=== PATIENT | male | born 1985 | race American Indian/Alaskan Native ===

== ENCOUNTER 2018-11-15 22:48 | Emergency (ER) | payer MEDICAID, OTHER ==
[2018-11-15 23:24] LABS: Basophils # (Auto) 0.1 K/mm3 (0.0-0.1); Basophils % (Auto) 0.8 % (0.0-1.8); Eosinophils # (Auto) 0.4 K/mm3 (0.0-0.4); Eosinophils % (Auto) 4.2 % (0.0-4.3); Hemoglobin 15.5 gm/dl (11.8-15.2); Lymphocytes # (Auto) 2.6 K/mm3 (1.2-5.4); Lymphocytes % (Auto) 28.4 % (13.4-35.0); Mean Corpuscular HGB Conc 36 % (32-34); Mean Corpuscular Volume 91 fl (84-94); Monocytes # (Auto) 0.9 K/mm3 (0.0-0.8); Monocytes % (Auto) 9.8 % (0.0-7.3); Platelet Count 257 K/mm3 (140-440); Red Blood Count 4.71 M/mm3 (3.65-5.03)
[2018-11-15 23:41] LABS: BUN/Creatinine Ratio 11; Blood Urea Nitrogen 20 mg/dL (9-20); Calcium 10.5 mg/dL (8.4-10.2); Hemolysis Index 31
--- NOTE | 2018-11-15 23:46 | XRay Report ---
FINAL REPORT PROCEDURE: XR CHEST ROUTINE 2V TECHNIQUE: PA and lateral chest radiographs were obtained. CPT 28279 HISTORY: SOB COMPARISON: No prior studies are available for comparison. FINDINGS: Heart: Normal. Mediastinum/Vessels: Normal. Lungs/Pleural space: Normal. Bony thorax: No acute osseous abnormality. Other: There is an electrode identified along the anterior left chest wall IMPRESSION: There is no evidence of an acute cardiopulmonary process.
[2018-11-16] MEDS ORDERED: PEPCID PO ONE (01:19)
[2018-11-16] MEDS ORDERED: BENTYL IM ONE (01:19)
[2018-11-16] MEDS ORDERED: TYLENOL PO ONE (01:19)
--- NOTE | 2018-11-16 01:19 | Emergency Department Report ---
ED Chest Pain HPI - General Chief Complaint: Chest Pain Stated Complaint: CHEST PAIN Time Seen by Provider: 11/16/18 01:07 Source: patient, family, RN notes reviewed Mode of arrival: Ambulatory Limitations: No Limitations - History of Present Illness Initial Comments: This is a 32-year-old gentleman who is not known to this provider previously. The patient typically follows at [facility]. 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 Patient presents to the emergency room with the complaint of nontraumatic left- sided chest wall pain. This pain does not radiates to the back, arms and neck. There is no vomiting or diaphoresis. The patient also complains of intermittent shortness of breath, diffuse muscular cramps, abdominal cramps, and generalized malaise. He denies severe headache, neck pain, urinary symptoms, tobacco consumption. He recently started a new medication, metolazone. Otherwise, he reports compliance with his anticoagulation he denies recent trips, surgeries hospitalizations He denies urinary symptoms. His cramping is intermittent, and he believes that his potassium is "low." MD Complaint: chest pain -: Gradual Onset: during rest Pain Location: left chest Pain Radiation: none Severity: moderate Severity scale (0 -10): 6 Quality: tightness, aching Consistency: constant Improves With: rest Worsens With: palpation, movement re: dyspnea Aspirin use within the Past 7 Days: (0) No - Related Data On Oral Contraceptives: No Previous Rx's Medication Instructions Recorded Last Taken Type Ondansetron [Zofran] 4 mg PO Q6HR PRN #20 tablet 11/16/14 Unknown Rx Naproxen [Naprosyn] 500 mg PO BID #30 tablet 02/07/15 Unknown Rx traMADol [Ultram 50 MG tab] 50 mg PO Q6HR PRN #20 tablet 02/07/15 Unknown Rx Acetaminophen [Tylenol Arthritis] 650 mg PO Q6HR PRN #30 tablet.er 11/16/18 Unknown Rx Famotidine [Pepcid] 20 mg PO BID #10 tablet 11/16/18 Unknown Rx Allergies Allergy/AdvReac Type Severity Reaction Status Date / Time No Known Allergies Allergy Verified 11/15/14 22:55 Heart Score - HEART Score History: Slightly suspicious EKG: Non-specific Age: < 45 Risk factors: 1-2 risk factors Troponin: < normal limit HEART Score: 2 - Critical Actions Critical Actions: 0-3 pts:0.9-1.7%risk of adverse cardiac event.Candidate for discharge ED Review of Systems ROS: Stated complaint: CHEST PAIN Other details as noted in HPI Constitutional: malaise. denies: fever Eyes: denies: vision change ENT: denies: epistaxis Respiratory: shortness of breath Cardiovascular: chest pain Gastrointestinal: abdominal pain. denies: vomiting Genitourinary: denies: dysuria Musculoskeletal: arthralgia, myalgia Skin: denies: lesions Neurological: denies: headache ED Past Medical Hx - Past Medical History Previous Medical History?: Yes Hx Congestive Heart Failure: Yes Hx Pulmonary Embolism: Yes Additional medical history: PE - Surgical History Additional Surgical History: ICD - Social History Smoking Status: Current Every Day Smoker Substance Use Type: None - Medications Home Medications: Home Medications Medication Instructions Recorded Confirmed Last Taken Type Ondansetron [Zofran] 4 mg PO Q6HR PRN #20 tablet 11/16/14 Unknown Rx Naproxen [Naprosyn] 500 mg PO BID #30 tablet 02/07/15 Unknown Rx traMADol [Ultram 50 MG tab] 50 mg PO Q6HR PRN #20 tablet 02/07/15 Unknown Rx Acetaminophen [Tylenol Arthritis] 650 mg PO Q6HR PRN #30 tablet.er 11/16/18 Unknown Rx Famotidine [Pepcid] 20 mg PO BID #10 tablet 11/16/18 Unknown Rx ED Physical Exam - General Limitations: No Limitations General appearance: alert, in no apparent distress - Head Head exam: Present: atraumatic, normocephalic - Eye Eye exam: Present: normal appearance, EOMI. Absent: scleral icterus, nystagmus - ENT ENT exam: Present: normal exam, normal orophraynx, mucous membranes moist, normal external ear exam - Neck Neck exam: Present: normal inspection, full ROM. Absent: tenderness, mening ismus - Respiratory Respiratory exam: Present: normal lung sounds bilaterally, chest wall tenderness. Absent: respiratory distress, wheezes, rales, rhonchi, stridor - Cardiovascular Cardiovascular Exam: Present: regular rate, normal rhythm, normal heart sounds. Absent: bradycardia, tachycardia, irregular rhythm, systolic murmur, diastolic murmur, rubs, gallop - GI/Abdominal GI/Abdominal exam: Present: soft. Absent: distended, tenderness, guarding, rebound, rigid, pulsatile mass - Rectal Rectal exam: Present: deferred - Extremities Exam Extremities exam: Present: normal inspection, full ROM, other (2+ pulses noted in the bilateral upper, lower extremities. Compartments soft. No long bony tenderness. The pelvis is stable.). Absent: pedal edema, joint swelling, calf tenderness - Back Exam Back exam: Present: normal inspection, full ROM. Absent: tenderness, CVA tenderness (R), paraspinal tenderness, vertebral tenderness - Neurological Exam Neurological exam: Present: alert, oriented X3, CN II-XII intact, normal gait, other (Extraocular movements intact. Tongue midline. No facial droop. Facial sensation intact to light touch in the V1, V2, V3 distribution bilaterally. 5 and 5 strength in 4 extremities.. Sensation is intact to light touch in 4 extremities.). Absent: motor sensory deficit - Psychiatric Psychiatric exam: Present: normal affect, normal mood - Skin Skin exam: Present: warm, dry, intact, normal color. Absent: rash ED Course Vital Signs 11/15/18 11/16/18 11/16/18 22:57 01:27 01:30 Temperature 97.8 F Pulse Rate 52 L 93 H 95 H Respiratory 20 24 24 Rate Blood Pressure 128/75 137/68 O2 Sat by Pulse 97 96 95 Oximetry 11/16/18 11/16/18 11/16/18 01:46 02:00 02:16 Temperature Pulse Rate 82 74 86 Respiratory 18 16 10 L Rate Blood Pressure 137/68 137/68 126/56 O2 Sat by Pulse 96 91 100 Oximetry 11/16/18 11/16/18 02:17 02:30 Temperature Pulse Rate 77 Respiratory 18 19 Rate Blood Pressure 126/56 O2 Sat by Pulse 97 Oximetry - Reevaluation(s) Reevaluation #1: 11/16/18 02:32 Differential diagnosis, including without limited to: GERD, gastritis, hiatal hernia, acute coronary syndrome, pericarditis, myocarditis, pneumonia, pulmonary embolus, electrolyte derangement Assessment and plan: 32-year-old gentleman with multiple complaints. Complaint #1: Chest pain low risk by well's criteria, EKG unremarkable with the exception of high left ventricular voltage, troponin negative 1, low risk by the heart score. We will treat with appropriate pain medication, repeat troponin, repeat EKG. X-ray of the chest unremarkable. Clinically doubt pneumonia, congestive heart failure. Not tachycardic. Not hypoxic. Compliant with systemic anticoagulation. Clinically doubt pulmonary embolus. D-dimer pending. Complaint #2: Myalgias and cramping: Treat with Bentyl, famotidine, acetaminophen. Check creatinine kinase, magnesium, liver panel. Renal insufficiency appears to be chronic. Reevaluation #2: 11/16/18 03:41 The patient is observed in the emergency room for approximately 5 hours without clinical decompensation. Vital signs remained stable and unremarkable. A repeat EKG unchanged from prior. Troponin negative 2. D-dimer negative. Laboratory studies essentially unremarkable with the exception of very mildly elevated phosphorus. The patient is at low risk for major adverse cardiac event by the heart score. we will discontinue the patient's metolazone, and he may follow-up with an outpatient primary care doctor or manager of operations for further evaluation. 11/16/18 03:44 ENEIDA score - Eneida Score Age > 65: (0) No Aspirin use within the Past 7 Days: (0) No 3 or more CAD Risk Factors: (0) No 2 or more Angina events in past 24 hrs: (0) No Known CAD with more than 50% Stenosis: (0) No Elevated Cardiac Markers: (0) No ST Deviation Greater than 0.5mm: (0) No ENEIDA Score: 0 ED Medical Decision Making - Lab Data Result diagrams: 11/15/18 23:07 11/15/18 23:07 Vital Signs 11/15/18 11/16/18 11/16/18 22:57 01:27 01:30 Temperature 97.8 F Pulse Rate 52 L 93 H 95 H Respiratory 20 24 24 Rate Blood Pressure 128/75 137/68 O2 Sat by Pulse 97 96 95 Oximetry 11/16/18 02:17 Temperature Pulse Rate Respiratory 18 Rate Blood Pressure O2 Sat by Pulse Oximetry Lab Results 11/15/18 11/15/18 Range/Units 23:07 23:07 WBC 9.3 (4.5-11.0) K/mm3 RBC 4.71 (3.65-5.03) M/mm3 Hgb 15.5 H (11.8-15.2) gm/dl Hct 43.0 (35.5-45.6) % MCV 91 (84-94) fl MCH 33 H (28-32) pg MCHC 36 H (32-34) % RDW 15.0 (13.2-15.2) % Plt Count 257 (140-440) K/mm3 Lymph % (Auto) 28.4 (13.4-35.0) % [place] % (Auto) 9.8 H (0.0-7.3) % Eos % (Auto) 4.2 (0.0-4.3) % Baso % (Auto) 0.8 (0.0-1.8) % Lymph # 2.6 (1.2-5.4) K/mm3 [place] # 0.9 H (0.0-0.8) K/mm3 Eos # 0.4 (0.0-0.4) K/mm3 Baso # 0.1 (0.0-0.1) K/mm3 Seg Neutrophils % 56.8 (40.0-70.0) % Seg Neutrophils # 5.3 (1.8-7.7) K/mm3 Sodium 132 L (137-145) mmol/L Potassium 4.4 (3.6-5.0) mmol/L Chloride 91.4 L (98-107) mmol/L Carbon Dioxide 25 (22-30) mmol/L Anion Gap 20 mmol/L BUN 20 (9-20) mg/dL Creatinine 1.9 H (0.8-1.5) mg/dL Estimated GFR 50 ml/min BUN/Creatinine Ratio 11 % Glucose 105 H (75-100) mg/dL Calcium 10.5 H (8.4-10.2) mg/dL Troponin T < 0.010 (0.00-0.029) ng/mL - EKG Data -: EKG Interpreted by Me EKG shows normal: sinus rhythm Rate: normal - EKG Data When compared to previous EKG there are: previous EKG unavailable 11/16/18 02:34 Sinus, 81 bpm, normal axis, QTC prolonged, premature ventricular contractions, high left ventricular voltage, not consistent with ST elevation myocardial infarction. - Radiology Data Radiology results: report reviewed, image reviewed X-ray the chest is negative for acute disease. ICD is noted. Critical care attestation.: If time is entered above; I have spent that time in minutes in the direct care of this critically ill patient, excluding procedure time. ED Disposition Clinical Impression: History of chest pain, Cramps, muscle, general Disposition: TO HOME OR SELFCARE Is pt being admited?: No Does the pt Need Aspirin: No Condition: Good Instructions: Chest Pain (ED), Muscle Cramp (ED) Additional Instructions: Continue outpatient medications, with the exception of metolazone. Discontinue metolazone for now. Follow-up with your primary care doctor or manager of operations within the next 3-5 days. Alternatively, patient may follow up with the less than cardiology practice. Follow-up with a signals intelligence analysis manager within the next 3-6 weeks. Return to the emergency room right away with Bernabe, worsen, different symptoms. Prescriptions: Acetaminophen [Tylenol Arthritis] 650 mg PO Q6HR PRN #30 tablet.er PRN Reason: Pain Famotidine [Pepcid] 20 mg PO BID #10 tablet Referrals: [facility] [Provider Group] - 3-5 Days MAURICIO LUIS MD [Staff Physician] - as needed
[2018-11-16 02:47] VITALS: BP 126/56
[2018-11-16 03:19] LABS: INR 1.36 (0.87-1.13)
[2018-11-16 03:20] LABS: Partial Thromboplastin Time 25.6 Sec. (24.2-36.6)
[2018-11-16 03:31] LABS: Alanine Aminotransferase 43 units/L (7-56); Albumin 4.6 g/dL (3.9-5)
[2018-11-16 03:32] LABS: Bilirubin,Direct < 0.2 mg/dL (0-0.2)
== END 2018-11-16 04:15 | disposition home or self-care (01) ==
LOC: ED 22:48
DX: R07.89 Other chest pain (principal); I50.9 Heart failure, unspecified; F17.200 Nicotine dependence, unspecified, uncomplicated; M79.10 Myalgia, unspecified site; Z86.711 Personal history of pulmonary embolism
CPT/HCPCS: 36415; 71046; 80048; 80076; 82550; 83735; 83880; 84100; 84484; 85025; 85379; 85610; 85730; 93005; 93010; 99284; J0500

== ENCOUNTER 2019-09-14 16:25 | Emergency (ER) | payer MEDICAID ==
--- NOTE | 2019-09-14 17:14 | Event Note ---
ED Screening Note Date of service: 09/14/19 Time: 17:10 ED Screening Note: This is a 33 y.o. M. that presents to the ER with numbness to left thigh for 3 days. PMH of CHF and pulmonary embolism Off xarelto for 3 weeks. This initial assessment/diagnostic orders/clinical plan/treatment(s) is/are subject to change based on patients health status, clinical progression and re- assessment by fellow clinical providers in the ED. Further treatment and workup at subsequent clinical providers discretion. Patient/guardian urged not to elope from the ED as their condition may be serious if not clinically assessed and managed. Initial orders include: doppler
--- NOTE | 2019-09-14 19:32 | Vascular Lab Report ---
DUPLEX DOPPLER LOWER EXTREMITY VEINS, LEFT INDICATION / CLINICAL INFORMATION: r/o dvt. Numbness in the left thigh for 3 days. History of pulmonary embolism. TECHNIQUE: Duplex doppler imaging was performed through the veins of the left lower extremity using venous compr ession and other maneuvers. COMPARISON: None available. FINDINGS: COMMON FEMORAL VEIN: Negative. FEMORAL VEIN: Negative. POPLITEAL VEIN: Negative. CALF VEINS: Negative. ADDITIONAL FINDINGS: None. IMPRESSION: 1. No sonographic evidence for DVT in the left lower extremity. Signer Name: Bere Bishop MD Signed: 09/14/2019 7:27 PM Workstation Name: [id number]
--- NOTE | 2019-09-14 20:05 | Emergency Department Report ---
ED Extremity Problem HPI - General Chief complaint: Extremity Injury, Lower Stated complaint: LT LEG NUMB Time Seen by Provider: 09/14/19 17:10 Source: patient Mode of arrival: Ambulatory Limitations: No Limitations - History of Present Illness Initial comments: The patient is a 33-year-old male with a history of CHF and chronic low back pain who presents to the ED with acute exacerbation of his chronic low back pain that radiates to the right lateral thigh with tingling sensation for the last 3 days. Patient denies fall, trauma to congenital, heavy lifting, bilateral lower extremity weakness, dizziness, urinary or bowel incontinence, saddle paresthesia, fever, chills, abdominal pain, nausea and vomiting or hematuria, chest pain or shortness of breath. MD Complaint: extremity pain (LEFT THIGH TINGLING), other (Left thigh tingling sensation) -: Sudden, days(s) (3) Location: left (thigh) History of Same: Yes -: Yes myalgia, Yes arthralgia Radiation: proximal Severity scale (0 -10): 4 Quality: aching, sharp Consistency: constant Improves with: nothing Worsens with: nothing Associated Symptoms: denies other symptoms, myalgias, arthralgias. denies: chest pain, shortness of breath - Related Data Previous Rx's Medication Instructions Recorded Last Taken Type Ondansetron [Zofran] 4 mg PO Q6HR PRN #20 tablet 11/16/14 Unknown Rx Naproxen [Naprosyn] 500 mg PO BID #30 tablet 02/07/15 Unknown Rx traMADoL [Ultram 50 MG tab] 50 mg PO Q6HR PRN #20 tablet 02/07/15 Unknown Rx Acetaminophen [Tylenol Arthritis] 650 mg PO Q6HR PRN #30 tablet.er 11/16/18 Unknown Rx Famotidine [Pepcid] 20 mg PO BID #10 tablet 11/16/18 Unknown Rx Gabapentin 300 mg PO Q8HR PRN #45 capsule 09/14/19 Unknown Rx Naproxen [Naprosyn TAB] 500 mg PO Q12H PRN #24 tablet 09/14/19 Unknown Rx Prednisone [predniSONE 10 mg 10 mg PO .TAPER #21 tab.ds.pk 09/14/19 Unknown Rx (6-Day Pack, 21 Tabs)] Allergies Allergy/AdvReac Type Severity Reaction Status Date / Time No Known Allergies Allergy Verified 11/15/14 22:55 ED Review of Systems ROS: Stated complaint: LT LEG NUMB Other details as noted in HPI Constitutional: denies: chills, fever Eyes: denies: eye pain, eye discharge, vision change ENT: denies: ear pain, throat pain Respiratory: denies: cough, shortness of breath, wheezing Cardiovascular: denies: chest pain, palpitations Endocrine: no symptoms reported Gastrointestinal: denies: abdominal pain, nausea, diarrhea Genitourinary: denies: urgency, dysuria Musculoskeletal: back pain (lower), arthralgia (left thigh tingling sensation). denies: joint swelling Skin: denies: rash, lesions Neurological: denies: headache, weakness, paresthesias Psychiatric: denies: anxiety, depression Hematological/Lymphatic: denies: easy bleeding, easy bruising ED Past Medical Hx - Past Medical History Hx Congestive Heart Failure: Yes Hx Pulmonary Embolism: Yes Additional medical history: PE - Surgical History Additional Surgical History: ICD - Social History Smoking Status: Current Every Day Smoker Substance Use Type: Marijuana - Medications Home Medications: Home Medications Medication Instructions Recorded Confirmed Last Taken Type Ondansetron [Zofran] 4 mg PO Q6HR PRN #20 tablet 11/16/14 Unknown Rx Naproxen [Naprosyn] 500 mg PO BID #30 tablet 02/07/15 Unknown Rx traMADoL [Ultram 50 MG tab] 50 mg PO Q6HR PRN #20 tablet 02/07/15 Unknown Rx Acetaminophen [Tylenol Arthritis] 650 mg PO Q6HR PRN #30 tablet.er 11/16/18 Unknown Rx Famotidine [Pepcid] 20 mg PO BID #10 tablet 11/16/18 Unknown Rx Gabapentin 300 mg PO Q8HR PRN #45 capsule 09/14/19 Unknown Rx Naproxen [Naprosyn TAB] 500 mg PO Q12H PRN #24 tablet 09/14/19 Unknown Rx Prednisone [predniSONE 10 mg 10 mg PO .TAPER #21 tab.ds.pk 09/14/19 Unknown Rx (6-Day Pack, 21 Tabs)] ED Physical Exam - General Limitations: No Limitations General appearance: alert, in no apparent distress - Head Head exam: Present: atraumatic, normocephalic, normal inspection - Eye Eye exam: Present: normal appearance, PERRL, EOMI. Absent: scleral icterus, conjunctival injection Pupils: Present: normal accommodation - ENT ENT exam: Present: normal exam, normal orophraynx, mucous membranes moist, TM's normal bilaterally, normal external ear exam - Neck Neck exam: Present: normal inspection, full ROM. Absent: tenderness - Respiratory Respiratory exam: Present: normal lung sounds bilaterally. Absent: respiratory distress, wheezes, rales, stridor, chest wall tenderness, accessory muscle use, prolonged expiratory - Cardiovascular Cardiovascular Exam: Present: regular rate, normal rhythm, normal heart sounds. Absent: systolic murmur, diastolic murmur, rubs, gallop - GI/Abdominal GI/Abdominal exam: Present: soft, normal bowel sounds. Absent: tenderness, guarding, hyperactive bowel sounds, hypoactive bowel sounds - Extremities Exam Extremities exam: Present: normal inspection, full ROM, normal capillary refill - Back Exam Back exam: Present: normal inspection, full ROM, tenderness (palpable lumbosacral paraspinal musculoskeletal tenderness), muscle spasm, paraspinal tenderness - Neurological Exam Neurological exam: Present: alert, oriented X3, CN II-XII intact, normal gait, reflexes normal - Psychiatric Psychiatric exam: Present: normal affect, normal mood - Skin Skin exam: Present: warm, dry, intact, normal color. Absent: rash ED Course Vital Signs 09/14/19 17:10 Temperature 98.2 F Pulse Rate 85 Respiratory 18 Rate Blood Pressure 124/78 O2 Sat by Pulse 95 Oximetry ED Medical Decision Making - Radiology Data Radiology results: report reviewed, image reviewed Findings [facility], [place] [address] [place] [address] Vascular Lab Report Signed Patient: LISA HEWITT MR#: [id number] : 1985 Acct:[id number] Age/Sex: 33 / M ADM Date: 09/14/19 Loc: ED Attending Dr: Ordering Physician: TERESA AGUILAR Date of Service: 09/14/19 Procedure(s): VL venous duplex LE LT Accession Number(s): [id number] cc: TERESA AGUILAR DUPLEX DOPPLER LOWER EXTREMITY VEINS, LEFT INDICATION / CLINICAL INFORMATION: r/o dvt. Numbness in the left thigh for 3 days. History of pulmonary embolism. TECHNIQUE: Duplex doppler imaging was performed through the veins of the left lower extremity using venous compression and other maneuvers. COMPARISON: None available. FINDINGS: COMMON FEMORAL VEIN: Negative. FEMORAL VEIN: Negative. POPLITEAL VEIN: Negative. CALF VEINS: Negative. ADDITIONAL FINDINGS: None. IMPRESSION: 1. No sonographic evidence for DVT in the left lower extremity. Signer Name: Bere Bishop MD Signed: 09/14/2019 7:27 PM Workstation Name: [id number] Transcribed By: DT Dictated By: Timo Bishop MD Electronically Authenticated By: Timo Bishop MD Signed Date/Time: 09/14/191926 DD/ 26 TD/TT: - Medical Decision Making This is a pleasant 33-year-old male with a history of chronic low back pain and sciatica presented to the ED with acute exacerbation of his chronic low back pain that radiates to the left thigh with tingling sensation for 3 days. In the ED, patient is alert and oriented 3 and is discharged in distress. Left lower extremity Doppler ultrasound shows no sonographic evidence for DVT in the left lower extremity. Patient was discharged home on medications for lumbar radiculopathy and was advised to follow-up with his primary care physician in 7- 10 days for reevaluation or return to the ED immediately if symptoms get worse. - Differential Diagnosis Muscle spasm; chronic back pain; sciatica; muscle strain Critical care attestation.: If time is entered above; I have spent that time in minutes in the direct care of this critically ill patient, excluding procedure time. 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 Return to the ED immediately if symptoms get worse. Prescriptions: Gabapentin 300 mg PO Q8HR PRN #45 capsule PRN Reason: Pain , Severe (7-10) Naproxen [Naprosyn TAB] 500 mg PO Q12H PRN #24 tablet PRN Reason: Pain , Severe (7-10) Prednisone [predniSONE 10 mg (6-Day Pack, 21 Tabs)] 10 mg PO .TAPER #21 tab.ds.pk Referrals: BRAYDON WHEELER MD [Staff Physician] - 7-10 days Time of Disposition: 20:05 Print Language: TUNISIAN
[2019-09-14 20:13] VITALS: BP 122/67
== END 2019-09-14 20:15 | disposition home or self-care (01) ==
LOC: ED 16:25
DX: G57.92 Unspecified mononeuropathy of left lower limb (principal); M54.42 Lumbago with sciatica, left side; G89.29 Other chronic pain; I26.99 Other pulmonary embolism without acute cor pulmonale; F17.200 Nicotine dependence, unspecified, uncomplicated; F12.10 Cannabis abuse, uncomplicated; Z79.899 Other long term (current) drug therapy; Z98.890 Other specified postprocedural states

== ENCOUNTER 2022-06-04 14:19 | Emergency (ER) | payer MEDICARE ==
[2022-06-04 14:40] VITALS: BP 154/68
== END 2022-06-04 20:00 | disposition left against medical advice (07) ==
LOC: ED 14:19
DX: F19.239 Other psychoactive substance dependence with withdrawal, unspecified (principal); Z53.21 Procedure and treatment not carried out due to patient leaving prior to being seen by health care provider

== ENCOUNTER 2022-06-08 01:46 | Inpatient (IN) | payer MEDICARE ==
[2022-06-08] MEDS ORDERED: ASPIRIN 81 MG TAB CHEW PO ONE (02:32)
--- NOTE | 2022-06-08 02:39 | Emergency Department Report ---
ED Chest Pain HPI - General Chief Complaint: Chest Pain Stated Complaint: CHEST PAIN Time Seen by Provider: 06/08/22 02:32 Source: patient, EMS Mode of arrival: Stretcher Limitations: No Limitations - History of Present Illness Initial Comments: 36-year-old male with a history of pulmonary embolism, heart failure s/p ICD placement who now presents with chest discomfort and shortness of breath that started couple of days ago. Patient has history of extensive illicit drug use. Patient mentioned that cardiac problem and complication runs in his family. Patient denies any fever or chills. No other modifying or associated factors reported. MD Complaint: chest pain - Related Data Previous Rx's Medication Instructions Recorded Last Taken Type Ondansetron [Zofran] 4 mg PO Q6HR PRN #20 tablet 11/16/14 Unknown Rx Naproxen [Naprosyn] 500 mg PO BID #30 tablet 02/07/15 Unknown Rx traMADoL [Ultram 50 MG tab] 50 mg PO Q6HR PRN #20 tablet 02/07/15 Unknown Rx Acetaminophen [Tylenol Arthritis] 650 mg PO Q6HR PRN #30 tablet.er 11/16/18 Unknown Rx Famotidine [Pepcid] 20 mg PO BID #10 tablet 11/16/18 Unknown Rx Gabapentin 300 mg PO Q8HR PRN #45 capsule 09/14/19 Unknown Rx Naproxen [Naprosyn TAB] 500 mg PO Q12H PRN #24 tablet 09/14/19 Unknown Rx Prednisone [predniSONE 10 mg 10 mg PO .TAPER #21 tab.ds.pk 09/14/19 Unknown Rx (6-Day Pack, 21 Tabs)] Allergies Allergy/AdvReac Type Severity Reaction Status Date / Time No Known Allergies Allergy Verified 11/15/14 22:55 Heart Score - HEART Score History: Slightly suspicious EKG: Normal Age: < 45 Risk factors: 1-2 risk factors Troponin: < normal limit HEART Score: 1 - EKG Read Time Time EKG Completed: 02:06 EKG Read Time: 02:15 - Critical Actions Critical Actions: 0-3 pts:0.9-1.7%risk of adverse cardiac event.Candidate for discharge ED Review of Systems ROS: Stated complaint: CHEST PAIN Other details as noted in HPI Comment: All other systems reviewed and negative Cardiovascular: chest pain, palpitations ED Past Medical Hx - Past Medical History Previous Medical History?: Yes Hx Congestive Heart Failure: Yes Hx Pulmonary Embolism: Yes Additional medical history: PE - Surgical History Past Surgical History?: Yes Additional Surgical History: ICD - Social History Smoking Status: Current Some Day Smoker Substance Use Type: Other - Medications Home Medications: Home Medications Medication Instructions Recorded Confirmed Last Taken Type Ondansetron [Zofran] 4 mg PO Q6HR PRN #20 tablet 11/16/14 Unknown Rx Naproxen [Naprosyn] 500 mg PO BID #30 tablet 02/07/15 Unknown Rx traMADoL [Ultram 50 MG tab] 50 mg PO Q6HR PRN #20 tablet 02/07/15 Unknown Rx Acetaminophen [Tylenol Arthritis] 650 mg PO Q6HR PRN #30 tablet.er 11/16/18 Unknown Rx Famotidine [Pepcid] 20 mg PO BID #10 tablet 11/16/18 Unknown Rx Gabapentin 300 mg PO Q8HR PRN #45 capsule 09/14/19 Unknown Rx Naproxen [Naprosyn TAB] 500 mg PO Q12H PRN #24 tablet 09/14/19 Unknown Rx Prednisone [predniSONE 10 mg 10 mg PO .TAPER #21 tab.ds.pk 09/14/19 Unknown Rx (6-Day Pack, 21 Tabs)] ED Physical Exam - General Limitations: No Limitations General appearance: alert, in no apparent distress - Head Head exam: Present: normal inspection - Eye Eye exam: Present: normal appearance Pupils: Present: normal accommodation - ENT ENT exam: Present: normal exam, normal orophraynx, mucous membranes dry - Neck Neck exam: Present: normal inspection, full ROM. Absent: tenderness - Respiratory Respiratory exam: Present: normal lung sounds bilaterally. Absent: respiratory distress, accessory muscle use - Cardiovascular Cardiovascular Exam: Present: regular rate, normal rhythm, normal heart sounds - GI/Abdominal GI/Abdominal exam: Present: soft, normal bowel sounds. Absent: distended, ten derness - Extremities Exam Extremities exam: Present: normal inspection, full ROM, normal capillary refill. Absent: tenderness, pedal edema - Back Exam Back exam: Absent: tenderness ED Course Vital Signs 06/08/22 02:15 Temperature 97.9 F Pulse Rate 43 L Respiratory 13 Rate Blood Pressure 157/78 [Left] O2 Sat by Pulse 98 Oximetry - Consultations Consultation #1: 06/08/22 04:47 Dr Knowles consulted Consultation #2: 06/08/22 04:48 Dr Conde consulted who accept pt for further evaluation and treatment ENEIDA score - Eneida Score Age > 65: (0) No Aspirin use within the Past 7 Days: (0) No 3 or more CAD Risk Factors: (0) No 2 or more Angina events in past 24 hrs: (0) No Known CAD with more than 50% Stenosis: (0) No Elevated Cardiac Markers: (0) No ST Deviation Greater than 0.5mm: (0) No ENEIDA Score: 0 ED Medical Decision Making - Lab Data Result diagrams: 06/08/22 02:50 06/08/22 02:50 - EKG Data -: EKG Interpreted by Nd EKG shows normal: sinus rhythm Rate: bradycardia - EKG Data 06/08/22 02:39 Initial EKG shows sinus bradycardia at a rate of 43 bpm with possible left ventricular hypertrophy and this abnormal ECG. - Radiology Data CXR noted with mild cardiomegaly with vascular congestion - Medical Decision Making Here with chest pain with history of sinus bradycardia/heart failure s/p ICD--which is likely dysfunction at this point we will go ahead and order routine labs including CBC, CMP, urinalysis, and cardiac enzyme-- This could also be differential could be but not limited to myocardial infarction, pulmonary embolism, costochondritis, anxiety, gastritis, GERD, pancreatitis, and or pyelonephritis--in order to rule out the above-- so will go ahead and order routine cardiopulmonary work-up that include troponin, EKG, chest x-ray, BNP, CKMB, and CBC, CMP and urinalysis for any correctable infectious process or electrolyte abnormality as a cause. Will also have this pacemaker ICD interrogated--patient bedside nurse was able to talk to [employer] and was told that this is ordinary ICD without pacemaker and patient will be needed to be admitted to the hospitalist for ca rdiology consult with this bradycardia. Lab reviewed and noticed to be within normal limit including BNP--and cardiac enzyme troponin. Chest x-ray however shows some vascular congestion but no infiltrate.--The vascular congestion probably caused some cardiac strain. Dr. Knowles video operator [employer] consulted who agreed to see patient in the morning. Dr Conde consulted who accept pt for further evaluation and treatment. Given Lasix 40 mg IV x 1 for the vascular congestion Critical care attestation.: If time is entered above; I have spent that time in minutes in the direct care of this critically ill patient, excluding procedure time. ED Disposition Clinical Impression: Pulmonary vascular congestion, Bradycardia ICD (implantable cardioverter-defibrillator) malfunction Qualifiers: Encounter type: initial encounter Qualified Code(s): T82.118A - Breakdown (mechanical) of other cardiac electronic device, initial encounter Chest pain Qualifiers: Chest pain type: unspecified Qualified Code(s): R07.9 - Chest pain, unspecified Disposition: 09 ADMITTED INPATIENT Is pt being admited?: Yes Does the pt Need Aspirin: No Condition: Stable Instructions: Nonspecific Chest Pain, Adult Time of Disposition: 04:47
--- NOTE | 2022-06-08 03:05 | XRay Report ---
CHEST 1 VIEW INDICATION / CLINICAL INFORMATION: Chest Pain STUDY TIME: 240 COMPARISON: 11/15/2018 FINDINGS: SUPPORT DEVICES: External pacer is again seen HEART / MEDIASTINUM: Mild cardiomegaly LUNGS / PLEURA: Pulmonary vascularity appears within normal limits. No focal infiltrates are seen. No pleural effusions are noted. No pneumothorax. ADDITIONAL FINDINGS: No significant additional findings. Signer Name: Johnie Kimbrough MD Signed: 06/08/2022 3:01 AM Workstation Name: [id number]
[2022-06-08 03:08] LABS: Basophils % (Auto) 0.7 % (0.0-1.8); Eosinophils # (Auto) 0.1 K/mm3 (0.0-0.4); Eosinophils % (Auto) 1.8 % (0.0-4.3); Hematocrit 36.2 % (35.5-45.6); Hemoglobin 12.1 gm/dl (11.8-15.2); Lymphocytes # (Auto) 2.5 K/mm3 (1.2-5.4); Lymphocytes % (Auto) 34.8 % (13.4-35.0); Mean Corpuscular HGB Conc 33 % (32-34); Mean Corpuscular Volume 90 fl (84-94); Monocytes # (Auto) 0.6 K/mm3 (0.0-0.8); Monocytes % (Auto) 8.8 % (0.0-7.3); Platelet Count 147 K/mm3 (140-440); Red Blood Count 4.05 M/mm3 (3.65-5.03); Red Cell Distribution Width 14.4 % (13.2-15.2)
[2022-06-08 03:22] LABS: Partial Thromboplastin Time 30.5 Sec. (24.2-36.6)
[2022-06-08 03:25] LABS: INR 1.1 (0.87-1.13)
[2022-06-08 03:28] LABS: Alanine Aminotransferase 12 units/L (7-56); BUN/Creatinine Ratio 8; Blood Urea Nitrogen 8 mg/dL (9-20); Hemolysis Index 11
[2022-06-08 04:36] LABS: Color,Urine Straw (Yellow)
[2022-06-08 04:38] LABS: Mucus,Urine FEW /HPF; RBC,Urine < 1.0 /HPF (0.0-6.0); WBC,Urine < 1.0 /HPF (0.0-6.0)
[2022-06-08 04:45] LABS: Amphetamine Screen,Urine PRESUMPTIVE NEGATIVE; Benzodiazepines Screen,Urine PRESUMPTIVE NEGATIVE; Cannabinoid Screen,Urine PRESUMPTIVE NEGATIVE; Cocaine Screen,Urine PRESUMPTIVE POSITIVE; Methadone Screen,Urine PRESUMPTIVE NEGATIVE; Opiate Screen,Urine PRESUMPTIVE NEGATIVE
[2022-06-08] MEDS ORDERED: ACETAMINOPHEN 325 MG TAB PO PRN ×2 (04:48→05:32)
[2022-06-08] MEDS ORDERED: MORPHINE 2 MG/1 ML INJ IV PRN ×2 (04:48→05:32)
[2022-06-08] MEDS ORDERED: ONDANSETRON 4 MG/2 ML INJ IV PRN (04:48)
[2022-06-08] MEDS ORDERED: FUROSEMIDE 40 MG/4 ML INJ IV ONE (04:48)
[2022-06-08] MEDS ORDERED: NITROGLYCERIN 0.4 MG TAB SUBL SL PRN (05:32)
[2022-06-08] MEDS ORDERED: traMADol 50 MG TAB PO PRN (05:32)
[2022-06-08] MEDS ORDERED: GABAPENTIN 300 MG CAP PO PRN (05:34)
--- NOTE | 2022-06-08 05:39 | History and Physical Report ---
History of Present Illness Date of examination: 06/08/22 Date of admission: 06/08/22 04:48 Chief complaint: Chest pain History of present illness: 36-year-old male with a history of pulmonary embolism, heart failure s/p ICD placement who now presents with chest discomfort and shortness of breath that started couple of days ago. Patient has history of extensive illicit drug use. Patient mentioned that cardiac problem and complication runs in his family. Patient denies any fever or chills. No other modifying or associated factors reported. In the emergency room initial cardiac enzyme is negative troponin is 0.010,Initial EKG shows sinus bradycardia at a rate of 43 bpm with possible left ventricular hypertrophy and this abnormal ECG. CXR noted with mild cardiomegaly with vascular congestion . So going to admit the patient , put the patient on chest pain pathway. Will consult cardiology for evaluation Past History Past Medical History: heart failure, other (Pulmonary embolism, ICD) Past Surgical History: Other (ICD) Social history: smoking Family history: hypertension Medications and Allergies Allergies Allergy/AdvReac Type Severity Reaction Status Date / Time No Known Allergies Allergy Verified 11/15/14 22:55 Home Medications Medication Instructions Recorded Confirmed Last Taken Type Ondansetron [Zofran] 4 mg PO Q6HR PRN #20 tablet 11/16/14 Unknown Rx Naproxen [Naprosyn] 500 mg PO BID #30 tablet 02/07/15 Unknown Rx traMADoL [Ultram 50 MG tab] 50 mg PO Q6HR PRN #20 tablet 02/07/15 Unknown Rx Acetaminophen [Tylenol Arthritis] 650 mg PO Q6HR PRN #30 tablet.er 11/16/18 Unknown Rx Famotidine [Pepcid] 20 mg PO BID #10 tablet 11/16/18 Unknown Rx Gabapentin 300 mg PO Q8HR PRN #45 capsule 09/14/19 Unknown Rx Naproxen [Naprosyn TAB] 500 mg PO Q12H PRN #24 tablet 09/14/19 Unknown Rx Prednisone [predniSONE 10 mg 10 mg PO .TAPER #21 tab.ds.pk 09/14/19 Unknown Rx (6-Day Pack, 21 Tabs)] Active Meds: Active Medications Acetaminophen (Acetaminophen 325 Mg Tab) 650 mg PO Q4H PRN PRN Reason: Pain MILD(1-3)/Fever >100.5/TAMAYO Morphine Sulfate (Morphine 2 Mg/1 Ml Inj) 2 mg IV Q4H PRN PRN Reason: Pain, Moderate (4-6) Ondansetron HCl (Ondansetron 4 Mg/2 Ml Inj) 4 mg IV Q8H PRN PRN Reason: Nausea And Vomiting Sodium Chloride (Sodium Chloride 0.9% 10 Ml Flush Syringe) 10 ml IV BID UNIQUE Sodium Chloride (Sodium Chloride 0.9% 10 Ml Flush Syringe) 10 ml IV PRN PRN PRN Reason: LINE FLUSH Review of Systems All systems: negative Cardiovascular: chest pain, shortness of breath, dyspnea on exertion Respiratory: shortness of breath, dyspnea on exertion Exam - Constitutional Vitals: Temp Pulse Resp BP Pulse Ox 97.9 F 41 L 15 146/62 99 06/08/22 02:15 06/08/22 04:46 06/08/22 04:46 06/08/22 04:46 06/08/22 04:46 General appearance: Present: no acute distress, well-nourished - EENT Eyes: Present: PERRL ENT: hearing intact, clear oral mucosa - Neck Neck: Present: supple, normal ROM - Respiratory Respiratory effort: normal Respiratory: bilateral: CTA - Cardiovascular Heart Sounds: Present: S1 & S2. Absent: rub, click - Extremities Extremities: pulses symmetrical, No edema Peripheral Pulses: within normal limits - Abdominal General gastrointestinal: Present: soft, non-tender, non-distended, normal bowel sounds Male genitourinary: Present: normal - Integumentary Integumentary: Present: clear, warm, dry - Musculoskeletal Musculoskeletal: gait normal, strength equal bilaterally - Psychiatric Psychiatric: appropriate mood/affect, intact judgment & insight - Neurologic Neurologic: CNII-XII intact, moves all extremities HEART Score - HEART Score EKG: Normal Age: < 45 Risk factors: 1-2 risk factors Troponin: Troponin T < 0.010 ng/mL (0.00-0.029) 06/08/22 02:50 Troponin: < normal limit - Critical Actions Critical Actions: 0-3 pts:0.9-1.7%risk of adverse cardiac event.Candidate for discharge Results - Labs CBC & Chem 7: 06/08/22 02:50 06/08/22 02:50 Labs: Laboratory Last Values WBC 7.3 K/mm3 (4.5-11.0) 06/08/22 02:50 RBC 4.05 M/mm3 (3.65-5.03) 06/08/22 02:50 Hgb 12.1 gm/dl (11.8-15.2) 06/08/22 02:50 Hct 36.2 % (35.5-45.6) 06/08/22 02:50 MCV 90 fl (84-94) 06/08/22 02:50 MCH 30 pg (28-32) 06/08/22 02:50 MCHC 33 % (32-34) 06/08/22 02:50 RDW 14.4 % (13.2-15.2) 06/08/22 02:50 Plt Count 147 K/mm3 (140-440) 06/08/22 02:50 Lymph % (Auto) 34.8 % (13.4-35.0) 06/08/22 02:50 [place] % (Auto) 8.8 % (0.0-7.3) H 06/08/22 02:50 Eos % (Auto) 1.8 % (0.0-4.3) 06/08/22 02:50 Baso % (Auto) 0.7 % (0.0-1.8) 06/08/22 02:50 Lymph # (Auto) 2.5 K/mm3 (1.2-5.4) 06/08/22 02:50 [place] # (Auto) 0.6 K/mm3 (0.0-0.8) 06/08/22 02:50 Eos # (Auto) 0.1 K/mm3 (0.0-0.4) 06/08/22 02:50 Baso # (Auto) 0.0 K/mm3 (0.0-0.1) 06/08/22 02:50 Seg Neutrophils % 53.9 % (40.0-70.0) 06/08/22 02:50 Seg Neutrophils # 3.9 K/mm3 (1.8-7.7) 06/08/22 02:50 PT 15.5 Sec. (12.2-14.9) H 06/08/22 02:50 INR 1.10 (0.87-1.13) 06/08/22 02:50 APTT 30.5 Sec. (24.2-36.6) 06/08/22 02:50 Sodium 139 mmol/L (137-145) 06/08/22 02:50 Potassium 3.6 mmol/L (3.6-5.0) 06/08/22 02:50 Chloride 105.8 mmol/L (98-107) 06/08/22 02:50 Carbon Dioxide 27 mmol/L (22-30) 06/08/22 02:50 Anion Gap 10 mmol/L 06/08/22 02:50 BUN 8 mg/dL (9-20) L 06/08/22 02:50 Creatinine 1.0 mg/dL (0.8-1.3) 06/08/22 02:50 Estimated GFR > 60 ml/min 06/08/22 02:50 BUN/Creatinine Ratio 8 % 06/08/22 02:50 Glucose 93 mg/dL (75-100) 06/08/22 02:50 Calcium 9.0 mg/dL (8.4-10.2) 06/08/22 02:50 Total Bilirubin 0.30 mg/dL (0.1-1.2) 06/08/22 02:50 AST 13 units/L (5-40) 06/08/22 02:50 ALT 12 units/L (7-56) 06/08/22 02:50 Alkaline Phosphatase 43 units/L (35-129) 06/08/22 02:50 Troponin T < 0.010 ng/mL (0.00-0.029) 06/08/22 02:50 NT-Pro-B Natriuret Pep 432.4 pg/mL (0-450) 06/08/22 02:50 Total Protein 6.6 g/dL (6.3-8.2) 06/08/22 02:50 Albumin 4.0 g/dL (3.9-5) 06/08/22 02:50 Albumin/Globulin Ratio 1.5 % 06/08/22 02:50 Urine Color Straw (Yellow) 06/08/22 04:20 Urine Turbidity Clear (Clear) 06/08/22 04:20 Specific [place] (Man) 1.015 (1.003-1.030) 06/08/22 04:20 Ur Protein (Man) <30 mg dl mg/dL (Negative) 06/08/22 04:20 Ur Ketones (Man) Negative (Negative) 06/08/22 04:20 Ur Nitrite (Man) Negative (Negative) 06/08/22 04:20 Urine Bilirubin (Man) Negative (Negative) 06/08/22 04:20 Leukocyte Esterase (Man) Negative (Negative) 06/08/22 04:20 Urine WBC (Auto) < 1.0 /HPF (0.0-6.0) 06/08/22 04:20 Urine RBC (Auto) < 1.0 /HPF (0.0-6.0) 06/08/22 04:20 Urine RBC (Manual) Negative (Negative) 06/08/22 04:20 Urine Mucus Few /HPF 06/08/22 04:20 Urine Opiates Screen Presumptive negative 06/08/22 04:20 Urine Methadone Screen Presumptive negative 06/08/22 04:20 Ur Barbiturates Screen Presumptive negative 06/08/22 04:20 Ur Phencyclidine Scrn Presumptive negative 06/08/22 04:20 Ur Amphetamines Screen Presumptive negative 06/08/22 04:20 U Benzodiazepines Scrn Presumptive negative 06/08/22 04:20 Urine Cocaine Screen Presumptive positive 06/08/22 04:20 U Marijuana (THC) Screen Presumptive negative 06/08/22 04:20 Drugs of Abuse Note Disclamer 06/08/22 04:20 - Imaging and Cardiology Chest x-ray: report reviewed Assessment and Plan VTE prophylaxis?: Mechanical Plan of care discussed with patient/family: Yes - Patient Problems (1) ACS (acute coronary syndrome) Current Visit: Yes Status: Acute Plan to address problem: Admit the patient to the medical telemetry. Aspirin 325 mg p.o. daily. Lipitor 40 mg p.o. daily. Serial cardiac enzymes. Echocardiogram. Cardiology evaluation (2) Pulmonary embolism Current Visit: Yes Status: Acute Plan to address problem: Patient has history of PE. Patient is not on any anticoagulation. Heparin 5000 units subcu every 12 hours (3) Tobacco abuse Current Visit: Yes Status: Acute Plan to address problem: Patient counseled regarding quitting smoking. We put the patient on nicotine patch (4) Bradycardia Current Visit: Yes Status: Acute Plan to address problem: Aspirin 325 mg p.o. daily. Lipitor 40 mg p.o. daily. Serial cardiac enzymes. Echocardiogram. Cardiology evaluation (5) ICD (implantable cardioverter-defibrillator) malfunction Current Visit: Yes Status: Acute Qualifiers: Encounter type: initial encounter Qualified Code(s): T82.118A - Breakdown (mechanical) of other cardiac electronic device, initial encounter Plan to address problem: Will also have this pacemaker ICD interrogated--patient bedside nurse was able to talk to [employer] and was told that this is ordinary ICD without pacemaker. Echocardiogram. Cardiology evaluation (6) Pulmonary vascular congestion Current Visit: Yes Status: Acute Plan to address problem: Lasix 40 mg IV daily. Echocardiogram. Cardiology evaluation. Fluid restr iction (7) DVT prophylaxis Current Visit: Yes Status: Acute Plan to address problem: Heparin 5000 units subcu every 12 hours for DVT prophylaxis. Protonix 40 mg p.o. daily for GI prophylaxis. Patient is a full code
[2022-06-08] MEDS ORDERED: HEPARIN 5,000 UNIT/1 ML VIAL SUB-Q SCH (06:00)
[2022-06-08 06:25] LABS: Chol/HDL Ratio 3.86 %
[2022-06-08 08:15] VITALS: BP 147/77
[2022-06-08] MEDS ORDERED: PANTOPRAZOLE 40 MG TAB PO SCH (10:00)
[2022-06-08] MEDS ORDERED: NICOTINE 14 MG/24 HR PATCH TD SCH (10:00)
[2022-06-08] MEDS ORDERED: FUROSEMIDE 40 MG/4 ML INJ IV SCH (10:00)
--- NOTE | 2022-06-08 10:58 | Electrocardiograph Report ---
[facility] Test Date: 2022-06-08 Test Time: 02:06:28 Pat Name: LISA HEWITT Department: Room: A451 1 Gender: M Offline Editor: LALITO : 1985 Requested By: CLIF FALCON Order Number: [id number] Reading MD: Kamron Mills Measurements Intervals [place] Rate: 43 P: 37 FL: 134 QRS: 69 QRSD: 109 T: 64 QT: 528 QTc: 446 Interpretive Statements Sinus bradycardia Probable left ventricular hypertrophy No previous ECG available for comparison Electronically Signed On 06-08-2022 10:57:58 EDT by Kamron Mills
[2022-06-09] MEDS ORDERED: ASPIRIN EC 325 MG TAB PO SCH (10:00)
== END 2022-06-08 08:52 | disposition left against medical advice (07) | DRG 315 ==
LOC: ED 01:46 → 4A 04:48
PROVIDERS: ADMIT Hospitalist; ATTEND Internal Medicine
DX: T82.118A Breakdown (mechanical) of other cardiac electronic device, initial encounter (principal); I24.9 Acute ischemic heart disease, unspecified; R00.1 Bradycardia, unspecified; R09.89 Other specified symptoms and signs involving the circulatory and respiratory systems; Z53.29 Procedure and treatment not carried out because of patient's decision for other reasons; Z95.810 Presence of automatic (implantable) cardiac defibrillator; F17.200 Nicotine dependence, unspecified, uncomplicated; Y83.8 Other surgical procedures as the cause of abnormal reaction of the patient, or of later complication, without mention of misadventure at the time of the procedure; Y92.89 Other specified places as the place of occurrence of the external cause; Z86.711 Personal history of pulmonary embolism; Z71.6 Tobacco abuse counseling
CPT/HCPCS: 36415; 71045; 80053; 80061; 80307; 81001; 83880; 84484; 85025; 85610; 85730; 93005; 96374; 96375; 99285; G0378; J1644; J1940